=== PATIENT | female | born 1970 | race American Indian/Alaskan Native ===

== ENCOUNTER 2023-07-08 06:35 | Day surgery (SDC) | payer OTHER ==
[~2023-07-08] VITALS: Ht 160 cm; Wt 86.4 kg
[~2023-07-08 06:35] MED LIST: CONCERTA36 MG PO; DICLOFENAC SODI50 MG PO; DILAUDID2 MG PO; ENBREL50 MG/1 ML SUB-Q; FOLIC ACID1 MG PO; HYDROCODON-ACE1 EA10 PO; HYDROCODON-ACE1 EA11 PO; IBUPROFEN800 MG PO; IRBESARTAN150 MG PO; LOSARTAN POTASS25 MG PO; LOVAZA1 GM PO; METFORMIN HCL500 MG PO; METHYLPHENIDATE10 M6 PO; METHYLPHENIDATE54 MG PO; ONDANSETRON ODT8 MG PO; OSTERA TABLET1 EACH PO; OZEMPIC0.25 MG/0. SQ; POTASSIUM CHLO10 MEQ PO; TRIAMTERENE-HC1 EAC1 PO; TRULICITY0.75 MG/0. SUB-Q
[2023-07-08 06:48] VITALS: BP 104/67
[2023-07-08] MEDS ORDERED: LIPITOR20 MG GT (06:53)
--- NOTE | 2023-07-08 07:11 | NUR ---
COMFORTABLE DAUGHTER AT BS.
--- NOTE | 2023-07-08 07:33 | NUR ---
DS ROUNDS. PT AND DAUGHTER EXPRESSED SITUATIONALLY APPROPRIATE CONCERNS REGARDING PROCEDURE. NORMALIZE EXPERIENCE. PROVIDED ANXIETY CONTAINMENT. PROVIDED PRAYER.
--- NOTE | 2023-07-08 08:21 | NUR ---
07/08/23 0821 Danae Zaragoza 0818-PT TO PACU IN SF POSITION. EYES CLOSED. PT RESPONDS TO VERBAL AND TACTILE STIMULI, DENIES PAIN AND REPOSITIONS SELF IN BED UPON COMMAND. BREATHING EASY AND UNLABORED.SPO2 >95% ON 3 L O2 VIA NC. PT ENCOURAGED TO PASS GAS.
[2023-07-08 09:22] VITALS: BP 98/68
--- NOTE | 2023-07-08 15:24 | OR ---
[facility] [address] [place], [place] [address] Signed DATE OF OPERATION: 07/08/2023 SURGEON: Pamela Joaquin MD PREOPERATIVE DIAGNOSIS: Colon screening. POSTOPERATIVE DIAGNOSES: 1. Sigmoid and right-sided diverticulosis. 2. Small polyps x2, left colon and rectosigmoid. PROCEDURE: Total colonoscopy to cecum with cold morcellation polypectomy x2 (only one specimen retrieved). ANESTHESIA: Intravenous sedation; fentanyl 150 mcg, Versed 6 mg. INDICATION: This 53-year-old woman is a patient of DENNY Maxwell at [facility]. She is referred for colon screening. She has no symptoms of bleeding, diarrhea or constipation and no family history of colon cancer. She understands risk of bleeding, infection, and perforation related to colonoscopy and wished to proceed. FINDINGS: The prep was good. Complete colonoscopy was undertaken of the cecum with full intubation of the cecum. There were diverticula scattered including the right transverse, left and sigmoid areas. There were two small polyps, one in the left colon and the other in the rectosigmoid. The left colon lesion was completely excised as evidenced by photograph, but specimen was not forthcoming unfortunately. The other small polyp of the rectosigmoid was excised completely. There were no other findings of concern. DESCRIPTION OF PROCEDURE: The patient was brought to the endoscopy suite and placed in the lateral decubitus position, given intravenous sedation to the point of slurred speech and nystagmus. Digital rectal examination was normal. An Olympus video colonoscope was passed in the rectum and manipulated throughout the colon noting sigmoid diverticulosis and left-sided diverticulitis. Scope was ultimately Electronically Signed By: PAMELA JOAQUIN MD 07/08/23 1524 PATIENT NAME: ADRIENNE WEBBER OPERATIVE REPORT DATE OF : 66 REPORT #: [id number] PHYSICIAN: PAMELA JOAQUIN MD PCP: VANESSA HE [facility]- REPORT IS CONFIDENTIAL AND NOT TO BE RELEASED WITHOUT AUTHORIZATION [facility] [address] [place], [place] [address] Signed advanced to the cecum. The ileocecal valve and appendiceal orifice were normal. The scope was carefully withdrawn and examination showed no sign of abnormality other than diverticula of right colon and some in the transverse colon and definitely in the left colon until about 50 cm from the anal verge, where a linear appearing polyp was noted. This was affirmed by narrow band imaging. This was excised with cold morcellation technique. Upon withdrawal of the biopsy forceps, there was no specimen. Various attempts to seek more tissue were unsuccessful. The area in question was completely obliterated. The scope was withdrawn and another similar such polyp was noted in the rectosigmoid. It too was excised with cold morcellation technique, though specimen was retrieved for that. Retroflexed view of the rectum was normal. Scope was removed and the patient was taken to the recovery room in good condition. CONCLUDING DIAGNOSES: Diverticulosis and two small polyps, both excised. PLAN: Recommend repeat colonoscopy in 5 years, sooner if clinical symptoms should occur. Would recommend high-fiber diet. She will return to the ongoing care of DENNY Maxwell. MD DARRON Hopkins/MODL /[id number] cc: DENNY Maxwell, [facility] Copies: ~ Electronically Signed By: PAMEAL JOAQUIN MD 07/08/23 1524 PATIENT NAME: ADRIENNE WEBBER OPERATIVE REPORT DATE OF : 66 REPORT #: [id number] PHYSICIAN: PAMELA JOAQUIN MD PCP: VANESSA HE [facility] REPORT IS CONFIDENTIAL AND NOT TO BE RELEASED WITHOUT AUTHORIZATION
--- NOTE | 2023-07-10 17:44 | PATH ---
[facility] [address] [facility] [place], [place] [address] Signed SPECIMEN(S): A SIGMOID POLYP SPECIMEN SOURCE: A. SIGMOID POLYP CLINICAL HISTORY: Initial screening colonoscopy FINAL PATHOLOGIC DIAGNOSIS: Sigmoid polyp: - Hyperplastic polyp (1 fragment). JVR:tai MICROSCOPIC EXAMINATION: Histologic sections of all submitted blocks are examined by light microscopy. These findings, together with the gross examination, support the pathologic diagnosis. GROSS DESCRIPTION: The specimen, labeled and designated "Luis A sigmoid polyp," is received in formalin and consists of one pérez soft tissue fragment, 0.3 cm. Entirely submitted in (A1). VB (under the direct supervision of a pathologist) The Gross Description was prepared using a voice recognition system. The report was reviewed for accuracy; however, sound-alike word errors, addition and/or deletions may occur. If there is any question about this report, please contact Client Services. PERFORMING LABORATORY: Technical component was performed by [facility], [address] [place] [id number] (CLIA# [id number]). Professional interpretation was performed by [facility], [address] [place] [id number] (CLIA#: [id number]). Diagnostician: Celio Rueda MD Pathologist Electronically Signed 07/10/2023 Copies: PATIENT NAME: ADRIENNE WEBBER PATHOLOGY DATE OF : 66 REPORT #: [id number] PHYSICIAN: [facility] PATHOLOG[facility] PCP: VANESSA HE REPORT IS CONFIDENTIAL AND NOT TO BE RELEASED WITHOUT AUTHORIZATION [address] [place], [place] [address] Signed ~ PATIENT NAME: ADRIENNE WEBBER PATHOLOGY DATE OF : 66 REPORT #: [id number] PHYSICIAN: [facility] PATHOLOGY PCP: VANESSA HE REPORT IS CONFIDENTIAL AND NOT TO BE RELEASED WITHOUT AUTHORIZATION
== END 2023-07-08 09:22 | disposition home or self-care (01) ==
LOC: OPS 06:35 → DS 06:35 → OPS 07:30
PROVIDERS: ATTEND Surgery
PROC: 0DBN8ZZ Excision of Sigmoid Colon, Via Natural or Artificial Opening Endoscopic (ICD-10-PCS; 2023-07-08)
PROC: 0DBM8ZZ Excision of Descending Colon, Via Natural or Artificial Opening Endoscopic (ICD-10-PCS; principal; 2023-07-08 07:30)
DX: Z12.11 Encounter for screening for malignant neoplasm of colon (principal); I10 Essential (primary) hypertension; G47.33 Obstructive sleep apnea (adult) (pediatric); Z90.711 Acquired absence of uterus with remaining cervical stump; E11.9 Type 2 diabetes mellitus without complications; Z88.5 Allergy status to narcotic agent; K63.5 Polyp of colon; K57.30 Diverticulosis of large intestine without perforation or abscess without bleeding
CPT/HCPCS: 99153; G0500; J2250; J3010; J7121

== ENCOUNTER 2024-07-21 09:03 | Emergency (ER) | payer OTHER ==
[~2024-07-21] VITALS: Ht 160 cm; Wt 84.8 kg
[~2024-07-21 09:03] MED LIST changes: +LIPITOR20 MG GT
[2024-07-21] MEDS ORDERED: MECLIZINE HCL 25 MG TAB PO ONE (09:15)
[2024-07-21] MEDS ORDERED: ondansetron HCL 4 MG/2 ML VIAL IV ONE (09:15)
[2024-07-21] MEDS ORDERED: SODIUM CHLORIDE 0.9% 500 ML IV PRN (09:15)
[2024-07-21 09:30] LABS: BASOPHILS 0.7 % (0-2); EOSINOPHILS 2.3 % (0-6); HEMATOCRIT 44.2 % (35.0-50.0); HEMOGLOBIN 14.5 g/dL (12.0-18.0); LYMPHOCYTES 29.3 % (24-44); MCH 28.7 (27-36); MCHC 32.8 g/dl (30-36); MCV 87.3 fl (81-99); MONOCYTES 6.5 % (0-12); NEUTROPHILS 61.2 % (39-80); PLATELET COUNT 249 K/uL (140-440); RBC 5.06 M/ul (4.3-5.7); RDW 16.4 (10.5-15.0)
[2024-07-21 09:38] LABS: PARTIAL THROMBOPLASTIN TIME 29.3 Sec (22.9-41.3)
[2024-07-21 09:39] LABS: INR 0.98 (0.80-1.30); PROTIME 12.8 Sec (11.2-14.2)
[2024-07-21 09:44] LABS: ALBUMIN 3.5 g/dL (3.4-5.0); ALBUMIN/GLOBULIN RATIO 0.83 (1.1-2.4); ALKALINE PHOSPHATASE 107 U/L (46-116); ALT (SGPT) 53 U/L (14-59); AST (SGOT) 23 U/L (15-37); BILIRUBIN, TOTAL 0.6 ng/dL (0.2-1.0); BUN/CREATININE RATIO 29.88 (6.0-28.6); CALCIUM 8.9 mg/dL (8.5-10.1); CARBON DIOXIDE 25 mmol/L (21-32); CHLORIDE 104 mmol/L (98-107); CREATININE, SERUM 0.87 mg/dL (0.55-1.02); GLOMERULAR FILTRATION RATE,EST 78 mL/min (>60); PROTEIN, TOTAL 7.7 g/dL (6.4-8.2); UREA NITROGEN 26 mg/dL (7-18)
[2024-07-21] MEDS ORDERED: diazePAM 10 MG/2 ML SYR IV ONE (10:30)
[2024-07-21] MEDS ORDERED: MECLIZINE HCL25 MG PO (12:53)
[2024-07-21] MEDS ORDERED: ONDANSETRON ODT4 MG PO (12:53)
[2024-07-21 13:07] VITALS: BP 109/82
--- NOTE | 2024-07-22 20:33 | EKG ---
[facility] [address] [facility] [place] [address] Signed Normal sinus rhythm Prolonged QT Abnormal ECG No previous ECGs available Confirmed by Kelley Greco DO ([id number]) on 07/22/2024 8:33:16 PM Electronically Signed By: KELLEY GRECO DO 07/22/242032 PATIENT NAME: ADRIENNE WEBBER Electrocardiogram DATE OF : 66 PHYSICIAN: KELLEY GRECO DO REPORT #: [id number] REPORT IS CONFIDENTIAL AND NOT TO BE RELEASED WITHOUT AUTHORIZATION
== END 2024-07-21 13:09 | disposition home or self-care (01) ==
LOC: ED 09:03
PROVIDERS: Emergency Medicine
DX: R42 Dizziness and giddiness (principal); E11.9 Type 2 diabetes mellitus without complications; I10 Essential (primary) hypertension; M06.9 Rheumatoid arthritis, unspecified; Z87.891 Personal history of nicotine dependence; Z79.899 Other long term (current) drug therapy; Z79.85 Long-term (current) use of injectable non-insulin antidiabetic drugs; Z88.8 Allergy status to other drugs, medicaments and biological substances; Z88.5 Allergy status to narcotic agent
CPT/HCPCS: 36415; 70450; 70496; 70498; 70553; 71045; 80053; 84484; 85025; 85610; 85730; 93005; 93010; 99284-25; A9270; A9577; A9579; J2405; J3360; J7040; Q3014; Q9967